=== PATIENT | female | born 1980 | race Caucasian/White ===

== ENCOUNTER 2017-05-12 12:31 | Emergency (ER) | payer BC ==
[2017-05-12] MEDS: KETOROLAC 15 MG INJ IM (16:35)
== END 2017-05-12 17:23 | disposition home or self-care (01) ==
LOC: FTE 12:31
DX: R51 Headache (principal); R03.0 Elevated blood-pressure reading, without diagnosis of hypertension; J45.909 Unspecified asthma, uncomplicated
CPT/HCPCS: 96372; 99284-25